=== PATIENT | female | born 1975 | race Caucasian/White ===

== ENCOUNTER 2020-12-31 10:41 | Emergency (ER) | payer OTHER ==
[2020-12-31 11:30] VITALS: BP 119/86; PULSE 104; TEMP 97.8; BMI 27.4
== END 2020-12-31 12:44 | disposition home or self-care (01) ==
LOC: JER 10:41
DX: R51.9 Headache, unspecified (principal); R09.81 Nasal congestion
CPT/HCPCS: 99283-25; C9803; U0003; U0005

== ENCOUNTER 2021-01-15 23:51 | Emergency (ER) | payer OTHER ==
[2021-01-16 00:21] VITALS: BP 126/81; PULSE 85; TEMP 98.5; BMI 22.6
== END 2021-01-16 02:46 | disposition home or self-care (01) ==
LOC: JER 23:51
DX: R05 Cough (principal)
CPT/HCPCS: 71046-TC-FY; 99283-25

== ENCOUNTER 2022-03-31 00:27 | Inpatient (IN) | payer OTHER ==
[2022-03-31 00:40] VITALS: BMI 27.7
[2022-03-31] MEDS ORDERED: SODIUM CHLORIDE 0.9% 500 ML INFUS.BAG IV ONE (01:15)
[2022-03-31] MEDS ORDERED: ONDANSETRON 4 MG/2 ML VIAL IVPUSH ONE (01:15)
[2022-03-31] MEDS ORDERED: MAG HYDROX/AL HYDROX/SIMETH -MYLANTA- ORAL SUSPENSION PO ONE (01:15)
[2022-03-31] MEDS ORDERED: ACETAMINOPHEN 1000 MG/100 ML BAG IVPB ONE (01:15)
[2022-03-31] MEDS ORDERED: FAMOTIDINE 20 MG/50 ML IVPB 20 MG/50 ML MG IVPB ONE ×2 (01:16→01:25)
[2022-03-31] MEDS ORDERED: ONDANSETRON 4 MG/2 ML VIAL ONE (01:24)
[2022-03-31] MEDS ORDERED: MAG HYDROX/AL HYDROX/SIMETH 30 ML UNIT-DOSE CUP ONE (01:25)
[2022-03-31] MEDS ORDERED: ACETAMINOPHEN INJECTION 100 ML IVPB ONE (01:27)
[2022-03-31] MEDS ORDERED: morphine CARPU-JECT 4 MG/1 ML DISP.SYRIN IVPUSH ONE (01:28)
[2022-03-31] MEDS ORDERED: morphine SULFATE 4 MG/ML VIAL ONE (01:30)
[2022-03-31 01:45] LABS: URINE APPEARANCE TURBID; URINE BILIRUBIN NEGATIVE (NEGATIVE); URINE COLOR YELLOW; URINE GLUCOSE (UA) NEGATIVE (NEGATIVE); URINE KETONE NEGATIVE (NEGATIVE); URINE LEUK ESTERASE NEGATIVE (NEGATIVE); URINE NITRITE NEGATIVE (NEGATIVE); URINE PROTEIN NEGATIVE (NEGATIVE); URINE UROBILINOGEN 0.2 mg/dL (0.2-1.0)
[2022-03-31 01:48] LABS: BASO % 1.6 % (0-2.0); HEMATOCRIT 39.4 % (32.4-45.2); HEMOGLOBIN 13.4 GM/dL (10.7-15.3); LYMPH % 58.1 % (8-40); MCH 31.1 pg (25.7-33.7); MCHC 34.1 g/dl (32.0-36.0); MEAN CELL VOLUME 91.2 fl (80-96); MONO % 9.7 % (3.8-10.2); NEUT % 29.6 % (42.8-82.8); PLATELET COUNT 338 10^3/uL (134-434); RBC 4.32 M/mm3 (3.60-5.2); RDW 12.6 % (11.6-15.6); WHITE BLOOD COUNT 6.5 K/mm3 (4.0-10.0)
[2022-03-31 02:07] LABS: INR 0.97 (0.83-1.09); PROTHROMBIN TIME (PATIENT) 11.2 SEC (9.7-13.0)
[2022-03-31 02:09] LABS: ACTIVATED PTT 27.3 SECONDS (25.2-36.5)
[2022-03-31 02:14] LABS: CALCIUM 9.5 mg/dL (8.5-10.1)
[2022-03-31 02:15] LABS: ALBUMIN 3.9 g/dl (3.4-5.0); BLOOD UREA NITROGEN 20.8 mg/dL (7-18)
[2022-03-31 02:18] LABS: CREATININE 0.8 mg/dL (0.55-1.3)
[2022-03-31 02:19] LABS: BILIRUBIN,TOTAL 0.4 mg/dL (0.2-1)
[2022-03-31] MEDS ORDERED: HYDROmorphone HCL CARPU-JECT 2 MG/1 ML DISP.SYRIN IVPUSH ONE (05:00)
[2022-03-31] MEDS ORDERED: HYDROmorphone HCl 2 MG/ML VIAL ONE (05:20)
[2022-03-31] MEDS ORDERED: ONDANSETRON 4 MG/2 ML VIAL IVPUSH PRN (09:00)
[2022-03-31] MEDS: DEXTROSE 5%-NORMAL SALINE 1,000 ML IV SCH (09:25)
[2022-03-31] MEDS ORDERED: HYDROmorphone HCl 2 MG/ML VIAL IVPUSH SCH (10:00)
[2022-03-31] MEDS ORDERED: KETOROLAC TROMETHAMINE 30 MG/1 ML VIAL IM PRN (11:45)
[2022-03-31] MEDS: POLYETHYLENE GLYCOL (HEALTHYLAX) 3350 17 GM PACKET PO SCH (18:38)
[2022-03-31] MEDS: CEFTRIAXONE 1 GM in DEXTROSE 5%-WATER - 50 ML IVPB SCH (18:39)
[2022-03-31] MEDS: ACETAMINOPHEN 325 MG TABLET (FP) PO PRN (19:47)
[2022-04-01] MEDS: POLYETHYLENE GLYCOL (HEALTHYLAX) 3350 17 GM PACKET PO SCH ×4 (01:22→22:00)
[2022-04-01] MEDS: PANTOPRAZOLE SODIUM 40 MG VIAL IVPUSH SCH (09:11)
[2022-04-01] MEDS: CEFTRIAXONE 1 GM in DEXTROSE 5%-WATER - 50 ML IVPB SCH (09:11)
[2022-04-01] MEDS: DEXTROSE 5%-NORMAL SALINE 1,000 ML IV SCH (09:14)
[2022-04-01] MEDS: ACETAMINOPHEN 325 MG TABLET (FP) PO PRN (09:19)
[2022-04-01 09:31] LABS: BASO % 0.6 % (0-2.0); EOS % 2.2 % (0-4.5); HEMATOCRIT 40.5 % (32.4-45.2); HEMOGLOBIN 13.5 GM/dL (10.7-15.3); LYMPH % 57.8 % (8-40); MCH 30.8 pg (25.7-33.7); MCHC 33.3 g/dl (32.0-36.0); MEAN CELL VOLUME 92.5 fl (80-96); MEAN PLT VOLUME 7.7 fl (7.5-11.1); MONO % 9.3 % (3.8-10.2); NEUT % 30.1 % (42.8-82.8); PLATELET COUNT 316 10^3/uL (134-434); RBC 4.38 M/mm3 (3.60-5.2); RDW 12.7 % (11.6-15.6); WHITE BLOOD COUNT 4.9 K/mm3 (4.0-10.0)
[2022-04-01 09:40] LABS: CALCIUM 8.7 mg/dL (8.5-10.1)
[2022-04-01 09:43] LABS: BLOOD UREA NITROGEN 9.4 mg/dL (7-18)
[2022-04-01 09:44] LABS: ALBUMIN 3.6 g/dl (3.4-5.0)
[2022-04-01 09:46] LABS: CREATININE 0.8 mg/dL (0.55-1.3)
[2022-04-01 09:47] LABS: BILIRUBIN,TOTAL 1.1 mg/dL (0.2-1); TOT PROT 6.9 g/dl (6.4-8.2)
[2022-04-01] MEDS ORDERED: CEFAZOLIN 1 GM in DEXTROSE 5%-WATER - 50 ML IVPB SCH (18:00)
[2022-04-02] MEDS: POLYETHYLENE GLYCOL (HEALTHYLAX) 3350 17 GM PACKET PO SCH (05:15)
[2022-04-02] MEDS ORDERED: INDOMETHACIN 50 MG RECTAL SUPPOSITORY PR ONE (09:30)
[2022-04-02] MEDS ORDERED: CEFTRIAXONE 1 GM in DEXTROSE 5%-WATER - 50 ML IVPB SCH (10:00)
[2022-04-02] MEDS: PANTOPRAZOLE SODIUM 40 MG VIAL IVPUSH SCH (10:05)
[2022-04-02] MEDS: DEXTROSE 5%-NORMAL SALINE 1,000 ML IV SCH (10:06)
[2022-04-02 10:44] LABS: BASO % 0.8 % (0-2.0); EOS % 2.6 % (0-4.5); HEMATOCRIT 38.5 % (32.4-45.2); HEMOGLOBIN 12.7 GM/dL (10.7-15.3); LYMPH % 48.9 % (8-40); MCH 30.5 pg (25.7-33.7); MCHC 32.9 g/dl (32.0-36.0); MEAN CELL VOLUME 92.6 fl (80-96); MEAN PLT VOLUME 7.6 fl (7.5-11.1); MONO % 8.3 % (3.8-10.2); NEUT % 39.4 % (42.8-82.8); PLATELET COUNT 285 10^3/uL (134-434); RBC 4.16 M/mm3 (3.60-5.2); RDW 12.4 % (11.6-15.6); WHITE BLOOD COUNT 4.6 K/mm3 (4.0-10.0)
[2022-04-02 11:46] LABS: BLOOD UREA NITROGEN 11.8 mg/dL (7-18); CALCIUM 9.1 mg/dL (8.5-10.1)
[2022-04-02 11:47] LABS: ALBUMIN 3.5 g/dl (3.4-5.0)
[2022-04-02 11:48] LABS: BILIRUBIN,DIRECT 0.2 mg/dL (0.0-0.2)
[2022-04-02 11:49] LABS: CREATININE 0.8 mg/dL (0.55-1.3)
[2022-04-02 11:50] LABS: BILIRUBIN,TOTAL 0.6 mg/dL (0.2-1); LIPASE 327 U/L (73-393); TOT PROT 6.3 g/dl (6.4-8.2)
[2022-04-02 11:51] LABS: AMYLASE 91 U/L (25-115)
[2022-04-02] MEDS ORDERED: PROPOFOL 20 ML ONE (16:04)
[2022-04-02] MEDS ORDERED: MIDAZOLAM HCL 2 MG/2 ML SINGLE DOSE VIAL ONE (16:04)
[2022-04-02] MEDS ORDERED: ROCURONIUM BROMIDE 50 MG/5 ML SYRINGE ONE (16:04)
[2022-04-02] MEDS ORDERED: LIDOCAINE HCL/PF 2% SDV 5ML VIAL ONE (16:05)
[2022-04-02] MEDS ORDERED: ONDANSETRON 4 MG/2 ML VIAL ONE (16:05)
[2022-04-02] MEDS ORDERED: DEXAMETHASONE SOD PHOSPHATE 4 MG/1 ML VIAL ONE (16:05)
[2022-04-02] MEDS ORDERED: KETOROLAC TROMETHAMINE 30 MG/1 ML VIAL ONE (16:05)
[2022-04-02] MEDS ORDERED: PROMETHAZINE HCL 25 MG/1 ML VIAL IVPUSH PRN (16:17)
[2022-04-02] MEDS ORDERED: oxyCODONE HCL 5 MG TABLET PO PRN ×4 (16:17→19:12)
[2022-04-02] MEDS ORDERED: GLUCAGON 1 MG KIT ONE (16:22)
[2022-04-02] MEDS ORDERED: LACTATED RINGERS SOLUTION 1,000 ML IV SCH (16:30)
[2022-04-02] MEDS ORDERED: GLYCOPYRROLATE 0.2 MG/1 ML VIAL ONE (17:06)
[2022-04-02] MEDS ORDERED: NEOSTIGMINE METHYLSULFATE 0.5 MG/ML - 10 ML MDV ONE (17:06)
[2022-04-02] MEDS ORDERED: BUPIVACAINE HCL/PF 0.25% (2.5MG/ML) 10 ML VIAL IJ ONE (17:08)
[2022-04-02] MEDS ORDERED: ONDANSETRON 4 MG/2 ML VIAL IVPUSH PRN (19:12)
[2022-04-02] MEDS ORDERED: KETOROLAC TROMETHAMINE 30 MG/1 ML VIAL IVPB PRN (19:12)
[2022-04-02] MEDS: LACTATED RINGERS SOLUTION 1,000 ML IV SCH (19:30)
[2022-04-02 21:14] VITALS: RESP 18
[2022-04-02] MEDS: ACETAMINOPHEN 500 MG TABLET (FP) PO SCH (22:34)
[2022-04-03] MEDS: LACTATED RINGERS SOLUTION 1,000 ML IV SCH (01:45)
[2022-04-03] MEDS: ACETAMINOPHEN 500 MG TABLET (FP) PO SCH ×2 (06:13→14:17)
[2022-04-03 10:00] LABS: HEMATOCRIT 35.9 % (32.4-45.2); HEMOGLOBIN 12.5 GM/dL (10.7-15.3); MCHC 34.7 g/dl (32.0-36.0); MEAN CELL VOLUME 92.1 fl (80-96); MEAN PLT VOLUME 7.3 fl (7.5-11.1); PLATELET COUNT 279 10^3/uL (134-434); RDW 12.1 % (11.6-15.6)
[2022-04-03] MEDS ORDERED: PANTOPRAZOLE SODIUM 40 MG VIAL IVPUSH SCH (10:00)
[2022-04-03 10:33] LABS: ALBUMIN 3.3 g/dl (3.4-5.0)
[2022-04-03 10:36] LABS: BILIRUBIN,DIRECT 0.3 mg/dL (0.0-0.2); CREATININE 0.8 mg/dL (0.55-1.3)
[2022-04-03 10:38] LABS: BILIRUBIN,TOTAL 1.1 mg/dL (0.2-1); TOT PROT 6.3 g/dl (6.4-8.2)
[2022-04-03] MEDS ORDERED: SIMETHICONE 80 MG TAB.CHEW (FP) PO PRN (10:55)
[2022-04-03 12:41] VITALS: PULSE 64
[2022-04-03 14:36] VITALS: BP 119/67; TEMP 98.5
== END 2022-04-03 17:56 | disposition home or self-care (01) | DRG 263 ==
LOC: JER 00:27 → JERBED 04:46 → J6S 18:25
PROVIDERS: ADMIT Internal Medicine; ATTEND Internal Medicine
PROC: 0FT44ZZ Resection of Gallbladder, Percutaneous Endoscopic Approach (ICD-10-PCS; principal; 2022-04-02 15:30)
PROC: BF03YZZ Plain Radiography of Gallbladder and Bile Ducts using Other Contrast (ICD-10-PCS; 2022-04-02 15:30)
DX: K80.42 Calculus of bile duct with acute cholecystitis without obstruction (principal); N20.0 Calculus of kidney; K59.00 Constipation, unspecified; K64.9 Unspecified hemorrhoids; K83.8 Other specified diseases of biliary tract; Z98.891 History of uterine scar from previous surgery
CPT/HCPCS: 0241U-QW; 36415; 71046-TC-FY; 74177-TC; 74181-TC; 76000-TC-FY; 76705-TC; 80048; 80053; 80076; 81003; 82150; 83690; 84484; 84703; 85025; 85027; 85610; 85730; 86140; 86301; 87040; 87086; 88304-TC; 93005; 93010; 94760; 99285-25; Q9967

== ENCOUNTER 2022-06-13 19:40 | Emergency (ER) | payer OTHER ==
[2022-06-13 19:53] VITALS: BP 120/79; PULSE 76; RESP 20; TEMP 98.2; BMI 58.6
[2022-06-13 22:14] LABS: BASO % 0.8 % (0-2.0); EOS % 1.7 % (0-4.5); HEMATOCRIT 37.4 % (32.4-45.2); HEMOGLOBIN 12.4 GM/dL (10.7-15.3); LYMPH % 59.5 % (8-40); MCH 30.7 pg (25.7-33.7); MCHC 33.2 g/dl (32.0-36.0); MEAN CELL VOLUME 92.5 fl (80-96); MEAN PLT VOLUME 7.4 fl (7.5-11.1); MONO % 7.3 % (3.8-10.2); NEUT % 30.7 % (42.8-82.8); PLATELET COUNT 296 10^3/uL (134-434); RBC 4.05 M/mm3 (3.60-5.2); RDW 13.6 % (11.6-15.6)
[2022-06-13 22:48] LABS: CALCIUM 8.6 mg/dL (8.5-10.1); MAGNESIUM 2.1 mg/dL (1.8-2.4)
[2022-06-13 22:49] LABS: ALBUMIN 3.5 g/dl (3.4-5.0)
[2022-06-13 22:52] LABS: CREATININE 0.8 mg/dL (0.55-1.3); PHOSPHOROUS 2.2 mg/dL (2.5-4.9)
[2022-06-13 22:53] LABS: BILIRUBIN,TOTAL 0.3 mg/dL (0.2-1); TOT PROT 6.6 g/dl (6.4-8.2)
== END 2022-06-13 23:38 | disposition home or self-care (01) ==
LOC: JER 19:40
DX: R00.2 Palpitations (principal)
CPT/HCPCS: 0241U-QW; 36415; 71046-TC-FY; 80053; 83735; 84100; 84439; 84443; 84484; 85025; 93005; 93010; 99285-25

== ENCOUNTER 2023-08-19 20:48 | Emergency (ER) | payer OTHER ==
[2023-08-19 20:59] VITALS: BP 96/62; PULSE 85; RESP 20; TEMP 98.6; BMI 26.6
[2023-08-19] MEDS ORDERED: KETOROLAC TROMETHAMINE 30 MG/1 ML VIAL ONE (22:30)
[2023-08-19] MEDS: KETOROLAC TROMETHAMINE 30 MG/1 ML VIAL IM ONE (22:34)
== END 2023-08-19 22:44 | disposition home or self-care (01) ==
LOC: JERFT 20:48
PROC: 3E0233Z Introduction of Anti-inflammatory into Muscle, Percutaneous Approach (ICD-10-PCS; principal; 2023-08-19)
DX: M79.10 Myalgia, unspecified site (principal); J02.9 Acute pharyngitis, unspecified; H92.02 Otalgia, left ear; J06.9 Acute upper respiratory infection, unspecified; B97.89 Other viral agents as the cause of diseases classified elsewhere; Z20.822 Contact with and (suspected) exposure to COVID-19
CPT/HCPCS: 0241U-QW; 84703; 96372; 99284-25

== ENCOUNTER 2024-08-22 19:13 | Emergency (ER) | payer OTHER ==
[2024-08-22 19:30] VITALS: BP 113/82; PULSE 80; RESP 17; TEMP 98.9; BMI 26.6
[2024-08-22] MEDS ORDERED: ACETAMINOPHEN INJECTION 100 ML ONE (20:42)
[2024-08-22] MEDS: ACETAMINOPHEN 1000 MG/100 ML BAG IVPB ONE (20:57)
[2024-08-22] MEDS: SODIUM CHLORIDE 0.9% 1000 ML INFUS.BAG IV ONE (20:58)
[2024-08-22] MEDS: METOCLOPRAMIDE HCL INJECTION 10 MG/2 ML VIAL IVPB ONE (20:58)
[2024-08-22] MEDS ORDERED: METOCLOPRAMIDE HCL INJECTION 10 MG/2 ML VIAL ONE (20:59)
[2024-08-22 21:04] LABS: BASOPHILS # 0.05 x10^3/uL (0.01-0.08); EOSINOPHIL % 0.6 % (0.7-5.8); EOSINOPHILS # 0.03 x10^3/uL (0.04-0.36); HEMATOCRIT 39.9 % (34.1-44.9); HEMOGLOBIN 12.3 g/dL (11.2-15.7); MCHC 30.8 g/dl (32.2-35.5); MEAN CELL VOLUME 95.2 fl (79.4-94.8); MEAN PLT VOLUME 9.1 fl (9.4-12.3); MONOCYTE # 0.56 x10^3/uL (0.24-0.86); PLATELET COUNT 241 x10^3/uL (182-369); RDW 12.3 % (12.2-17.1)
[2024-08-22 21:32] LABS: POTASSIUM 4.3 mmol/L (3.5-5.1)
[2024-08-22 21:34] LABS: CALCIUM 8.6 mg/dL (8.5-10.1)
[2024-08-22 21:35] LABS: ALBUMIN 3.4 g/dl (3.4-5.0); BLOOD UREA NITROGEN 14.1 mg/dL (7-18)
[2024-08-22 21:38] LABS: CREATININE 0.7 mg/dL (0.55-1.3)
[2024-08-22 21:39] LABS: BILIRUBIN,TOTAL 0.2 mg/dL (0.2-1)
[2024-08-22 21:40] LABS: TOT PROT 6.5 g/dl (6.4-8.2)
[2024-08-22] MEDS ORDERED: OSELTAMIVIR PHOSPHATE 75 MG CAPSULE ONE (22:00)
[2024-08-22] MEDS: OSELTAMIVIR PHOSPHATE 75 MG CAPSULE PO ONE (22:18)
== END 2024-08-22 22:21 | disposition home or self-care (01) ==
LOC: JER 19:13
PROC: 3E033NZ Introduction of Analgesics, Hypnotics, Sedatives into Peripheral Vein, Percutaneous Approach (ICD-10-PCS; principal; 2024-08-22)
PROC: 3E033GC Introduction of Other Therapeutic Substance into Peripheral Vein, Percutaneous Approach (ICD-10-PCS; 2024-08-22)
DX: J10.1 Influenza due to other identified influenza virus with other respiratory manifestations (principal); R51.9 Headache, unspecified; R09.81 Nasal congestion; R50.9 Fever, unspecified; R53.81 Other malaise; H57.11 Ocular pain, right eye
CPT/HCPCS: 0241U-QW; 36415; 71046-TC-FY; 80053; 84703; 85025; 99284-25; J0131

== ENCOUNTER 2024-12-23 00:39 | Emergency (ER) | payer OTHER ==
[2024-12-23 00:47] VITALS: BP 103/74; PULSE 87; RESP 19; TEMP 99.5; BMI 24.2
[2024-12-23] MEDS ORDERED: ACETAMINOPHEN INJECTION 100 ML ONE (01:50)
[2024-12-23] MEDS: ACETAMINOPHEN 1000 MG/100 ML BAG IVPB ONE (02:01)
[2024-12-23 02:26] LABS: MCHC 31.7 g/dl (32.2-35.5); MEAN CELL VOLUME 92.5 fl (79.4-94.8); MEAN PLT VOLUME 10.5 fl (9.4-12.3); RDW 12.0 % (12.2-17.1)
[2024-12-23 02:28] LABS: INR 1.07 (0.83-1.09); PROTHROMBIN TIME (PATIENT) 11.8 SEC (9.7-13.0)
[2024-12-23 02:31] LABS: ACTIVATED PTT 24.1 SECONDS (25.2-36.5)
[2024-12-23 02:37] LABS: CO2 28.0 mmol/L (21-32)
[2024-12-23 02:38] LABS: GLUCOSE,RANDOM 97.0 mg/dL (74-106)
[2024-12-23 02:41] LABS: CREATININE 0.6 mg/dL (0.55-1.3); SGOT/AST 118.0 U/L (15-37); SGPT/ALT 148.0 U/L (13-61)
[2024-12-23 02:42] LABS: TOT PROT 6.3 g/dl (6.4-8.2)
[2024-12-23 02:43] LABS: ALK PHOS 124.0 U/L (45-117)
== END 2024-12-23 03:57 | disposition home or self-care (01) ==
LOC: JER 00:39
PROC: 3E033NZ Introduction of Analgesics, Hypnotics, Sedatives into Peripheral Vein, Percutaneous Approach (ICD-10-PCS; principal; 2024-12-23)
DX: M54.50 Low back pain, unspecified (principal); M25.561 Pain in right knee; M25.562 Pain in left knee; M79.604 Pain in right leg; M79.605 Pain in left leg; R53.81 Other malaise
CPT/HCPCS: 36415; 71045-TC-FY; 80053; 85025; 85610; 85730; 86850; 86900; 86901; 87637-QW; 88300-TC; 99284-25